=== PATIENT | female | born 1975 | race Caucasian/White ===

== ENCOUNTER 2019-10-23 11:55 | Outpatient (CLI) | payer OTHER, SELFPAY ==
--- NOTE | ~2019-10-23 | CT_ITS ---
EXAMINATION: CT abdomen pelvis w con DATE: 10/23/2019 12:22 INDICATION: Abdominal pain TECHNIQUE: Computed tomography (CT) of the abdomen and pelvis was performed with 100 cc Omnipaque 350 intravenous contrast. Automated exposure control and iterative reconstruction technique were employe d. Exam dose: 322.58 mGy-cm total exam DLP. COMPARISON: None. FINDINGS: The lung bases are clear. Normal heart size. No pericardial or pleural effusion. The liver, gallbladder, bile ducts, spleen, pancreas, pancreatic duct, and adrenal glands are unremar kable. There are multiple bilateral renal cysts, the largest measuring 1.5 cm on the left, 1.2 cm on the rig ht. An IUD is noted within the uterus. The urinary bladder is evacuated. Normal caliber of the abdominal aorta. No intraperitoneal or retroperitoneal or pelvic mass lesion or adenopathy or ascites. Diverticulosis of the colon; no CT evidence of diverticulitis. No bowel obstruction, bowel wall thick ening, pneumatosis or intraperitoneal free air. Included skeletal structures are unremarkable.. IMPRESSION: IUD within uterus Bilateral renal cysts Diverticulosis of the colon Reviewed, dictated and finalized at Location [facility]. Reviewed, dictated and finalized at location A.
[2019-10-23 12:52] LABS: Hematocrit 36.5 % (37.0-47.0); Hemoglobin 12.3 g/dL (12.0-15.0); Mean Corpuscular HGB Conc 33.7 g/dl (32-36); Mean Corpuscular Volume 91.9 fl (80-100); Mean Platelet Volume 9.6 fl (7.4-10.4); Platelet Count Result 246 k/mm3 (150-375); Red Blood Count 3.97 M/mm3 (4.2-5.4); Red Cell Distribution Width 11.9 % (11.5-14.5); White Blood Count 8.3 K/mm3 (4.5-10.0)
[2019-10-23 12:54] LABS: Anion Gap 7 mmol/L (8-16); Blood Urea Nitrogen 10 mg/dL (7-17); Calcium 8.8 mg/dL (8.4-10.2); Carbon Dioxide 27 mmol/L (22-30); Chloride 100 mmol/L (98-107); Estimated Glomerular Filt Rate > 60; Glucose 89 mg/dL (65-105); Potassium 4.4 mmol/L (3.4-5.0); Sodium 134 mmol/L (137-145)
== END 2019-10-23 11:56 | disposition home or self-care (01) ==
LOC: ANHIMG 12:01
PROVIDERS: PCP Family Medicine; Visit Provider Nurse Practitioner Family
DX: R10.9 Unspecified abdominal pain (principal); Z97.5 Presence of (intrauterine) contraceptive device; N28.1 Cyst of kidney, acquired; K57.90 Diverticulosis of intestine, part unspecified, without perforation or abscess without bleeding
CPT/HCPCS: 36415; 74177; 80048; 85027; Q9967

== ENCOUNTER 2020-03-02 13:53 | Outpatient (CLI) | payer OTHER, SELFPAY ==
[2020-03-02 14:36] LABS: Basophils Absolute Auto 0.1 K/mm3 (0.0-0.1); Basophils Percent Auto 0.6 % (0.2-1.2); Eosinophils Absolute Auto 0.1 K/mm3 (0-0.3); Eosinophils Percent Auto 1.1 % (0-4.4); Hematocrit 40.7 % (37.0-47.0); Hemoglobin 13.5 g/dL (12.0-15.0); Immature Granulocyte Absolute 0.03 K/mm3 (0.00-0.031); Immature Granulocyte Percent A 0.3 % (0-0.5); Lymphocytes Absolute Auto 2.93 K/mm3 (0.9-3.2); Lymphocytes Percent Auto 30.1 % (18.3-44.2); Mean Corpuscular HGB Conc 33.2 g/dl (32-36); Mean Corpuscular Hemoglobin 30.5 pg (26-34); Mean Corpuscular Volume 91.9 fl (80-100); Mean Platelet Volume 9.3 fl (7.4-10.4); Monocytes Absolute Auto 0.7 K/mm3 (0.1-0.6); Monocytes Percent Auto 6.8 % (2.6-8.5); Neutrophils Absolute Auto 5.9 K/mm3 (1.3-6.7); Neutrophils Percent Auto 61.1 % (45.5-73.1); Platelet Count Result 283 k/mm3 (150-375); Red Blood Count 4.43 M/mm3 (4.2-5.4); Red Cell Distribution Width 12.5 % (11.5-14.5); White Blood Count 9.7 K/mm3 (4.5-10.0)
[2020-03-02 14:48] LABS: Anion Gap 6 mmol/L (8-16); Blood Urea Nitrogen 11 mg/dL (7-17); Calcium 9.2 mg/dL (8.4-10.2); Carbon Dioxide 28 mmol/L (22-30); Chloride 104 mmol/L (98-107); Estimated Glomerular Filt Rate > 60; Glucose 89 mg/dL (65-105); Potassium 4.1 mmol/L (3.4-5.0); Sodium 138 mmol/L (137-145)
[2020-03-02 15:18] LABS: Thyroid Stimulating Hormone 0.697 uIU/mL (0.465-4.680)
--- NOTE | 2020-03-05 08:03 | WPDHOLTEREM ---
Holter/Event Monitor Holter/Event Monitor Date of procedure: 03/02/20 Procedure Type: 24 hour holter monitor Indications: Syncope Conclusion: 1. 24 hour holter monitor on 03/02/20. 2. Underlying rhythm is sinus rhythm. HR range 47-124 bpm; average HR 71 bpm. 3. There are 17 premature supraventricular complexes and 2 supraventricular couplets. No supraventricular tachycardia. 4. There are 14 premature ventricular complexes. No ventricular tachycardia. 5. No sinoatrial or atrioventricular blocks. No significant pauses greater than 2 seconds. 6. Patient reports dizziness which demonstrate Sinus rhythm, HR range 64-70 bpm.
== END 2020-03-02 13:54 | disposition home or self-care (01) ==
PROVIDERS: PCP Family Medicine; Visit Provider Family Medicine
DX: R55 Syncope and collapse (principal)
CPT/HCPCS: 36415; 80048; 84443; 85025; 93225; 93226

== ENCOUNTER 2020-03-24 14:39 | Outpatient (CLI) | payer OTHER, SELFPAY ==
--- NOTE | 2020-03-24 14:51 | ECHO_ITS ---
Patient Info Name: Jannet Farfan Age: 44 years : 1975 Gender: Female Ht: 66 in Wt: 147 lbs BSA: 1.77 m2 HR: 62 bpm BP: 121 / 83 mmHg Heart Rhythm: Sinus Rhythm Technical Quality: Good Exam Date: 03/24/2020 3:11 PM Exam Location: [facility] Patient Status: Outpatient Admit Date: 03/24/2020 Staff Ordering Physician: Griffin Chaudhari MD Stereoptician: Shanda Yan RDCS Attending Provider: Griffin Chaudhari MD Referring Physician: Fara TALAVERA; Exam Type: CA echo doppler color flow Study Info Indications - syncope collaspe Complete two-dimensional, color flow and Doppler transthoracic echocardiogram is performed. Summary 1. Complete two-dimensional, color flow and Doppler transthoracic echocardiogram is performed. 2. No significant valvular heart disease. 3. The left ventricle is borderline enlarged with normal wall thickness. The left ventricular systolic function is at the lower end of normal, visually 55-60% ejection fraction, measured ejection fraction of 61%. There are no focal wall motion abnormalities. Normal diastolic function. 4. Left atrial chamber dimension is mildly enlarged. 5. No pulmonary hypertension, estimated pulmonary arterial systolic pressure is 26 mmHg. 6. Normal sinus rhythm. Left Ventricle Left ventricular chamber dimension is normal. Left ventricular systolic function is normal, estimated at 55-60%. There is no increased left ventricular wall thickness. Left ventricular septal wall motion is normal. The left ventricular diastolic function is normal. Right Ventricle Right ventricular chamber dimension is normal. Right ventricular systolic function is normal. Left Atria Left atrial chamber dimension is mildly enlarged. Right Atria Right atrial chamber dimension is normal. Aortic Valve The aortic valve is trileaflet. There is no aortic valve sclerosis. There is no aortic valve stenosis. There is no aortic valve regurgitation. Pulmonic Valve The pulmonic valve is normal. There is no pulmonic valve stenosis. There is trace pulmonic regurgitation. Mitral Valve The mitral valve has normal leaflets. There is no mitral valve stenosis. There is trace mitral valve regurgitation. Tricuspid Valve The tricuspid valve leaflets are normal. There is no significant tricuspid valve stenosis. There is trace tricuspid valve regurgitation. No pulmonary hypertension, estimated pulmonary arterial systolic pressure is 26 mmHg. Pericardium/Pleural The pericardium appears normal. There is no pericardial effusion. Inferior Vena Cava Normal inferior vena cava with >50% collapse upon inspiration consistent with Empty right atrial pressure, 10 mmHg. Aorta The aortic root size at the sinus of Valsalva is normal. The prox ascending aorta size is normal. Left Ventricular Outflow Tract Name Value Normal LVOT 2D LVOT Diameter 2.0 cm LVOT Doppler LVOT Peak Gradient 4 mmHg LVOT Mean Gradient 3 mmHg LVOT VTI 24 cm LVOT VTI/AV VTI Ratio
== END 2020-03-24 14:40 | disposition home or self-care (01) ==
PROVIDERS: PCP Family Medicine; Visit Provider Family Medicine
DX: R55 Syncope and collapse (principal)
CPT/HCPCS: 93306

== ENCOUNTER 2020-06-10 09:02 | Outpatient (CLI) | payer OTHER, SELFPAY ==
[2020-06-10 09:18] LABS: Basophils Absolute Auto 0.1 K/mm3 (0.0-0.1); Eosinophils Absolute Auto 0.1 K/mm3 (0-0.3); Eosinophils Percent Auto 1.8 % (0-4.4); Hematocrit 39.2 % (37.0-47.0); Immature Granulocyte Absolute 0.02 K/mm3 (0.00-0.031); Immature Granulocyte Percent A 0.3 % (0-0.5); Lymphocytes Absolute Auto 2.82 K/mm3 (0.9-3.2); Mean Corpuscular HGB Conc 33.2 g/dl (32-36); Mean Corpuscular Hemoglobin 30.5 pg (26-34); Mean Platelet Volume 8.8 fl (7.4-10.4); Monocytes Absolute Auto 0.5 K/mm3 (0.1-0.6); Monocytes Percent Auto 7.2 % (2.6-8.5); Neutrophils Absolute Auto 3.5 K/mm3 (1.3-6.7); Neutrophils Percent Auto 49.7 % (45.5-73.1); Platelet Count Result 257 k/mm3 (150-375); Red Blood Count 4.26 M/mm3 (4.2-5.4); Red Cell Distribution Width 12.1 % (11.5-14.5); White Blood Count 7.1 K/mm3 (4.5-10.0)
[2020-06-10 09:55] LABS: Erythrocyte Sedimentation Rate 15 mm/hr (0-20)
[2020-06-10 10:19] LABS: Free T4 Free Thyroxine 0.89 ng/mL (0.78-2.19)
[2020-06-10 11:45] LABS: CRP 0.5 mg/dL (<1.0)
[2020-06-10 11:51] LABS: Rheumatoid Factor < 8.6 IU/ML (<12)
[2020-06-10 12:19] LABS: Thyroid Stimulating Hormone 0.588 uIU/mL (0.465-4.680)
[2020-06-15 07:23] LABS: Triiodothyronine T3 Free 3.5 pg/mL (2.3-4.2)
== END 2020-06-10 09:03 | disposition home or self-care (01) ==
PROVIDERS: PCP Family Medicine; Visit Provider Nurse Practitioner Family
DX: H20.9 Unspecified iridocyclitis (principal)
CPT/HCPCS: 36415; 84439; 84443; 84481; 85025; 85652; 86038; 86039; 86140; 86430

== ENCOUNTER 2021-07-14 16:04 | Outpatient (CLI) | payer OTHER, SELFPAY ==
--- NOTE | ~2021-07-14 | XR_ITS ---
XR hand LT 2V DATE: 07/14/2021 16:17 INDICATION: Left hand injury, pain TECHNIQUE: AP and lateral views COMPARISON: None FINDINGS: No fracture or dislocation, periosteal reaction or bone destruction. Joint spaces are prese rved. No erosive change or chondrocalcinosis. IMPRESSION: Negative examination Reviewed, dictated and finalized at location A. IMPRESSION: Negative examination
== END 2021-07-14 16:05 | disposition home or self-care (01) ==
LOC: ANHIMG 16:07
PROVIDERS: PCP Family Medicine; Visit Provider Physician Assistant Medical
DX: S69.92XA Unspecified injury of left wrist, hand and finger(s), initial encounter (principal)
CPT/HCPCS: 73120

== ENCOUNTER 2021-07-21 09:26 | Outpatient (CLI) | payer OTHER, SELFPAY ==
[2021-07-21 09:49] LABS: Blood Urea Nitrogen 10 mg/dL (7-17)
[2021-07-21 10:39] LABS: Anion Gap 7 mmol/L (8-16); Carbon Dioxide 27 mmol/L (22-30); Chloride 105 mmol/L (98-107); Sodium 139 mmol/L (137-145)
[2021-07-21 10:40] LABS: Estimated Glomerular Filt Rate > 60; Glucose 97 mg/dL (65-110); Triglycerides 69 mg/dL (<150)
[2021-07-21 10:41] LABS: Cholesterol 170 mg/dL (0-200); HDL Direct 61 mg/dL
[2021-07-21 10:59] LABS: LDL Cholesterol Direct 79 mg/dL
[2021-07-21 11:02] LABS: Thyroid Stimulating Hormone 0.418 uIU/mL (0.465-4.680)
== END 2021-07-21 09:27 | disposition home or self-care (01) ==
PROVIDERS: PCP Family Medicine; Visit Provider Nurse Practitioner Family
DX: F41.9 Anxiety disorder, unspecified (principal); Z13.220 Encounter for screening for lipoid disorders; Z13.1 Encounter for screening for diabetes mellitus
CPT/HCPCS: 36415; 80048; 80061; 84443

== ENCOUNTER 2021-08-02 12:26 | Outpatient (CLI) | payer OTHER, SELFPAY ==
[2021-08-02 13:14] LABS: T4 Thyroxine 6.08 ug/dL (5.53-11.0)
[2021-08-02 13:27] LABS: Thyroid Stimulating Hormone 0.329 uIU/mL (0.465-4.680)
== END 2021-08-02 12:27 | disposition home or self-care (01) ==
PROVIDERS: PCP Family Medicine; Visit Provider Nurse Practitioner Family
DX: R79.89 Other specified abnormal findings of blood chemistry (principal)
CPT/HCPCS: 36415; 84436; 84443

== ENCOUNTER 2022-10-10 14:29 | Emergency (ER) | payer OTHER, SELFPAY ==
[2022-10-10] VITALS (21 sets, daily range): BP systolic 141–192; BP diastolic 88–123; PULSE 50–70; RESP 12–20; TEMP 36.8; O2SAT 98–100
--- NOTE | ~2022-10-10 | XR_ITS ---
EXAMINATION: XR chest 2V Exam Date/Time: 10/10/2022 15:06 CDT HISTORY: cp Comparison: CT abdomen pelvis 10/23/2019. RESULT: Lines, tubes, and devices: None. Lungs and pleura: Minimal left posterior costophrenic angle blunting, otherwise clear. Cardiomediastinal silhouette: Stable. Other: No acute osseous or upper abdominal finding. IMPRESSION: Minimal left posterior costophrenic angle blunting may represent a trace pleural effusion or chronic pleural parenchymal scarring. Reviewed, dictated and finalized at location K. IMPRESSION: Minimal left posterior costophrenic angle blunting may represent a trace pleura l effusion or chronic pleural parenchymal scarring.
--- NOTE | ~2022-10-10 | CT_ITS ---
EXAMINATION: CTA brain carotid DATE: 10/10/2022 19:53 INDICATION: dizziness, numbness that radiates to arms TECHNIQUE: Computed tomographic angiography (CTA) of the head was performed without and with 100 mL O mnipaque-350 intravenous contrast. CTA of the neck was performed with intravenous contrast. Automated exposure control and iterative reconstruction technique were employed. The dose-length product was 1 659.16 mGy-cm. Maximum intensity projection and volume rendered 3D-reconstructions were created by harriet harris technologist on a separate workstation. COMPARISON: None. FINDINGS: CT BRAIN: No acute large vessel infarct, intracranial hemorrhage, mass, or hydrocephalus. Aerated secretions in the sphenoid sinus. Left maxillary mucosal thickening. Air-fluid level in the right maxillary sinus. CTA HEAD: No large vessel occlusion, aneurysm, high flow vascular malformation, nidus or extravasation. Persist ent origin of the left posterior cerebral artery. Symmetric parenchymal enhancement. Patent cer ebral veins. CTA NECK: Aortic arch and proximal great vessels: No significant plaque. The left vertebral artery takes its or igin directly from the arch. Right common carotid, carotid bifurcation, and internal carotid artery: No plaque.There is 0% stenosi s of the proximal right internal carotid artery relative to normal distal artery lumen diameter (NASC ET criteria). Left common carotid, carotid bifurcation, and internal carotid artery: No plaque.There is 0% stenosis of the proximal left internal carotid artery relative to normal distal artery lumen diameter (NASCET criteria). Vertebral arteries: No significant plaque or stenosis. Right vertebral artery is dominant, Other findings: Subcentimeter thyroid hypodensities that require no additional evaluation. Visualized lung parenchyma is clear. IMPRESSION: No acute intracranial process. No acute large vessel occlusion. No significant carotid or vertebral stenosis. Paranasal sinus findings may reflect acute sinusitis in the appropriate clinical context. Reviewed, dictated and finalized at location K. IMPRESSION: No acute intracranial process. No acute large vessel occlusion. No significant carotid or vertebral stenosis. Paranasal sinus findings may reflect acute sinusitis in the appropriate clinica l context.
--- NOTE | 2022-10-10 14:37 | ECG_ITS ---
Measurements Intervals [place] Rate: 68 P: 51 MD: 141 QRS: 49 QRSD: 83 T: 45 QT: 405 QTc: 433 Interpretive Statements SINUS RHYTHM NONSPECIFIC T-WAVE ABNORMALITY ABNORMAL ECG NO PREVIOUS ECG AVAILABLE FOR COMPARISON Electronically Signed On 10-10-2022 15:21:05 CDT by Pato Carlton M.D.
[2022-10-10 15:04] LABS: Basophils Absolute Auto 0.1 K/mm3 (0.0-0.1); Basophils Percent Auto 0.6 % (0.2-1.2); Eosinophils Absolute Auto 0.2 K/mm3 (0-0.3); Eosinophils Percent Auto 1.6 % (0-4.4); Hematocrit 37.3 % (37.0-47.0); Hemoglobin 12.7 g/dL (12.0-15.0); Immature Granulocyte Absolute 0.03 K/mm3 (0.00-0.031); Immature Granulocyte Percent A 0.3 % (0-0.5); Lymphocytes Absolute Auto 2.61 K/mm3 (0.9-3.2); Mean Corpuscular Hemoglobin 30.7 pg (26-34); Mean Corpuscular Volume 90.1 fl (80-100); Mean Platelet Volume 9.2 fl (7.4-10.4); Monocytes Absolute Auto 0.6 K/mm3 (0.1-0.6); Monocytes Percent Auto 5.5 % (2.6-8.5); Platelet Count Result 281 k/mm3 (150-375); Red Blood Count 4.14 M/mm3 (4.2-5.4); Red Cell Distribution Width 11.9 % (11.5-14.5); White Blood Count 10.5 K/mm3 (4.5-10.0)
[2022-10-10 15:19] LABS: Alanine Aminotransferase 19 U/L (6-35); Albumin Level 4.7 g/dL (3.5-5.1); Alkaline Phosphatase 61 U/L (38-126); Anion Gap 10 mmol/L (8-16); Aspartate Amino Transferase 34 U/L (14-36); Bilirubin,Total 0.8 mg/dL (0.2-1.3); Blood Urea Nitrogen 12 mg/dL (7-17); Calcium 8.9 mg/dL (8.4-10.2); Carbon Dioxide 28 mmol/L (22-30); Chloride 100 mmol/L (98-107); Estimated CRCL calculation 85 ml/min; Estimated Glomerular Filt Rate > 60; Glucose 120 mg/dL (65-110); Lipase 123 U/L (23-300); Potassium 3.5 mmol/L (3.4-5.0); Sodium 138 mmol/L (137-145)
[2022-10-10 15:20] LABS: INR 1.1; Partial Thromboplastin Time 33.5 SECONDS (22.3-36.8); Prothrombin Time 14.5 Seconds (11.1-14.7)
[2022-10-10 15:31] LABS: Troponin I < 0.012 ng/mL (0.000-0.034)
[2022-10-10 19:33] LABS: Troponin I < 0.012 ng/mL (0.000-0.034)
--- NOTE | 2022-10-10 19:52 | ED.GENADULT ---
HPI - General Adult General Chief complaint: Dizziness Stated complaint: sent by PCP for HTN and dizziness Time Seen by Provider: 10/10/22 19:19 History of Present Illness HPI narrative: Patient 46-year-old female who presents the emergency department with chief complaint of dizziness. The patient reports that on Sunday she was driving from the report and had an episode where she felt as though she was very lightheaded and felt as though she could not really control her arms well patient had to tap puller and her had to take over driving the vehicle the patient states that she has still had intermittent episodes similar to this since that time the patient states that she normally does not have high blood pressure and occasionally checks her blood pressure at home but has never been elevated the patient states that when she saw her primary care provider and also checked her blood pressure today was running in the 160s patient reports no headache denies focal weakness in her arms or legs denies change in speech or changes in vision Related Data Allergies Allergy/AdvReac Type Severity Reaction Status Date / Time No Known Allergies Allergy Verified 10/10/22 14:29 Review of Systems Review of Systems: A 10 system review of systems was completed on the patient and is negative except for what is stated in the HPI. Nursing and ancillary documentation was reviewed. [facility] Past Medical History Medical History Pre-syncope Family History Family History Other Family history of premature coronary heart disease Social History Social History Smoking status: Former smoker Alcohol intake: current Exam Narrative: GENERAL: Well-appearing, well-nourished, and in no acute distress. HEAD: Normocephalic, atraumatic. EYES: PERRLA and EOMI. ENT: Nares clear, no rhinorrhea or epistaxis. Mucous membranes moist. NECK: Supple. CHEST: Clear to auscultation. No respiratory distress. HEART: Regular rate and rhythm. No murmur heard. Normal peripheral pulses. ABDOMEN: Soft, nontender, nondistended, normal active bowel sounds. EXTREMITIES: Normal range of motion. No edema. SKIN: Warm, dry, no rash. NEURO: No focal deficits. Alert and oriented x3. PSYCH: Normal mood and affect. Course Vital Signs Vital signs: Vital Signs Temperature 36.8 C 10/10/22 14:33 Pulse Rate 70 10/10/22 14:33 Respiratory Rate 16 10/10/22 14:33 Blood Pressure 189/100 H 10/10/22 14:33 Pulse Oximetry 98 10/10/22 14:33 Temperature 36.8 C 10/10/22 14:33 Pulse Rate 59 L 10/10/22 21:31 Respiratory Rate 16 10/10/22 21:31 Blood Pressure 147/92 H 10/10/22 21:30 Pulse Oximetry 99 10/10/22 21:31 Medical Decision Making MDM Narrative Medical decision making narrative: Differential diagnosis includes hypertensive urgency, CVA, GA, electrolyte abnormality, UTI Laboratory studies were obtained and the patient showed normal CBC normal CMP troponin was negative for 2 sets BNP was 114 lipase was 123 urinalysis showed 11-20 white blood cells 1+ bacteria 2+ leukocyte esterase Patient was given p.o. Keflex and also will be started on lisinopril The case was initially discussed with the hospitalist for possible admission since the patient's blood pressure has come down substantially and the patient is doing much better is felt the patient could be followed up as an outpatient The patient had a CT angiography of the head and neck which showed no acute abnormalities Vital Signs Vital Signs: Vital Signs Temperature 36.8 C 10/10/22 14:33 Pulse Rate 70 10/10/22 14:33 Respiratory Rate 16 10/10/22 14:33 Blood Pressure 189/100 H 10/10/22 14:33 Pulse Oximetry 98 10/10/22 14:33 Temperature 36.8 C 10/10/22 14:33 Pulse Rate
[2022-10-10] MEDS: SODIUM CHLORIDE 0.9% IV 1,000 ML 999 ML IV CONT (19:57)
[2022-10-10 20:22] LABS: Appearance Urine Cloudy (Clear); Bacteria Urine 1+ /hpf; Bilirubin Urine Negative (Negative); Blood Urine Negative (Negative); Color Urine Yellow (Yellow); Glucose Urine UA Negative (Negative); Ketones Urine Negative (Negative); Leukocyte Esterase Ur 2+ LEU/UL (Negative); Nitrate Urine Negative (Negative); Non Pathogenic Casts 0-2; Protein Urine Negative (Negative); RBC Urine 0-2 /hpf (0-2); Specific Grav Ur 1.021 (1.001-1.035); Squamous Epithelial Cell Urine Moderate /hpf (Few); Urobilinogen Urine 0.2 mg/dL (<2.0); pH Urine 7.5 (5.0-9.0)
[2022-10-10 20:23] LABS: Lactic Acid Reflex 1.1 mmol/L (0.7-2.0)
[2022-10-10 20:26] LABS: Add Urine Microscopic? YES
[2022-10-10 20:35] LABS: Magnesium 2.1 mg/dL (1.6-2.3)
[2022-10-10 20:45] LABS: NT Pro B Type Natriuretic Pept 114 pg/mL (19.9-100)
[2022-10-10] MEDS: hydrALAZINE HCL 20 MG/ML VIAL 10 MG IV PUSH (21:09)
== END 2022-10-10 22:11 | disposition home or self-care (01) ==
PROVIDERS: Student in an Organized Health Care Education/Training Program; Emergency Provider Emergency Medicine; PCP Family Medicine
DX: N39.0 Urinary tract infection, site not specified (principal); I10 Essential (primary) hypertension; R42 Dizziness and giddiness; Z87.891 Personal history of nicotine dependence; R94.31 Abnormal electrocardiogram [ECG] [EKG]
CPT/HCPCS: 36415; 70496; 70498; 71046; 80053; 81001; 81025; 83605; 83690; 83735; 83880; 84484; 85025; 85610; 85730; 87086; 87088; 93005; 96361; 96374; 99284; J0360; J7030; Q9967

== ENCOUNTER 2022-10-17 17:37 | Outpatient (CLI) | payer OTHER, SELFPAY ==
[2022-10-17 18:26] LABS: Basophils Absolute Auto 0.1 K/mm3 (0.0-0.1); Basophils Percent Auto 0.7 % (0.2-1.2); Eosinophils Absolute Auto 0.3 K/mm3 (0-0.3); Hemoglobin 12.7 g/dL (12.0-15.0); Immature Granulocyte Absolute 0.03 K/mm3 (0.00-0.031); Immature Granulocyte Percent A 0.3 % (0-0.5); Lymphocytes Absolute Auto 3.54 K/mm3 (0.9-3.2); Lymphocytes Percent Auto 36.8 % (18.3-44.2); Mean Corpuscular HGB Conc 32.6 g/dl (32-36); Mean Corpuscular Hemoglobin 30.2 pg (26-34); Mean Corpuscular Volume 92.9 fl (80-100); Mean Platelet Volume 9.5 fl (7.4-10.4); Monocytes Absolute Auto 0.7 K/mm3 (0.1-0.6); Monocytes Percent Auto 6.9 % (2.6-8.5); Neutrophils Percent Auto 52.3 % (45.5-73.1); Platelet Count Result 305 k/mm3 (150-375); Red Cell Distribution Width 12.1 % (11.5-14.5); White Blood Count 9.6 K/mm3 (4.5-10.0)
[2022-10-21 07:34] LABS: FSH 38.3 mIU/mL (***); LH 31.7 mIU/mL (***)
[2022-10-21 19:11] LABS: Testosterone Free 1.7 pg/mL (0.1-6.4); Testosterone Total 21 ng/dL (2-45)
[2022-10-28 16:22] LABS: Estrogen 243 pg/mL
== END 2022-10-17 17:38 | disposition home or self-care (01) ==
PROVIDERS: PCP Family Medicine; Visit Provider Family Medicine
DX: F41.0 Panic disorder [episodic paroxysmal anxiety] (principal); E34.9 Endocrine disorder, unspecified; D72.829 Elevated white blood cell count, unspecified
CPT/HCPCS: 36415; 82672; 83001; 83002; 84402; 84403; 85025

== ENCOUNTER → 2022-12-13 09:20 | Outpatient (CLI) | payer OTHER, SELFPAY ==
--- NOTE | ~2022-12-13 | XR_ITS ---
XR abdomen/kub 1V 12/13/2022 09:38 INDICATION: Abdomen pain TECHNIQUE: KUB COMPARISON: No prior studies for comparison. FINDINGS: Bowel gas pattern is normal. There is no evidence of free air, mass, organomegaly, ascites or obstruction. No abnormal calculi are seen. The bones appear intact. There is an IUD in the pelv is. Moderate colonic fecal loading. IMPRESSION: 1: No acute abdominal abnormality identified. Reviewed, dictated and finalized at location B.
== END ==
PROVIDERS: PCP Nurse Practitioner Family; Visit Provider Nurse Practitioner Family
DX: R10.9 Unspecified abdominal pain (principal); M54.50 Low back pain, unspecified
CPT/HCPCS: 74018

== ENCOUNTER 2022-12-22 07:55 | Outpatient (CLI) | payer OTHER, SELFPAY ==
--- NOTE | ~2022-12-22 | CT_ITS ---
EXAMINATION: CT abdomen pelvis wo/w con DATE: 12/22/2022 08:26 INDICATION: Cyst of the kidney, acquired TECHNIQUE: Computed tomography (CT) of the abdomen was performed without intravenous contrast. CT of the abdomen and pelvis was then performed with a total of 100 mL Omnipaque 350 intravenous contrast. The dose-length product (DLP) was 501.09 mGy-cm. Automated exposure control and iterative reconstruct ion technique were employed. COMPARISON: 10/23/2019 FINDINGS: The lung bases are clear. The heart size is normal. The liver, spleen, pancreas, gallbladde r, and adrenal glands are normal. There are multiple simple cysts of both kidneys which measure up to 1.5 cm on the left. There is a 10 mm proteinaceous cyst of the interpolar region of the right kidney . No suspicious renal or urothelial lesion identified. No pathologically enlarged abdominal or pelvic lymph nodes are identified. No free intraperitoneal gas or evidence of bowel obstruction. An IUD is present in expected position. Colonic diverticulosis is present without evidence of diverticulitis. T he appendix is normal. A moderate volume of colonic stool is present. IMPRESSION: 1. Cysts of the kidneys, including a proteinaceous cyst on the right. No suspicious renal lesion iden tified. Reviewed, dictated and finalized at location B. ING INSULATION BLOWER IMPRESSION: 1. Cysts of the kidneys, including a proteinaceous cyst on the right. No suspic ious renal lesion identified.
== END 2022-12-22 07:56 | disposition home or self-care (01) ==
PROVIDERS: PCP Nurse Practitioner Family; Visit Provider Nurse Practitioner Family
DX: N28.1 Cyst of kidney, acquired (principal)
CPT/HCPCS: 74178; Q9967

== ENCOUNTER 2023-02-15 05:55 | Day surgery (SDC) | payer OTHER, SELFPAY ==
[2023-01-29 13:34] VITALS: BMI 22.8
--- NOTE | 2023-02-14 09:01 | P.PNAN_ITS ---
Anes - Initial Pre Proc Eval Procedure: Operation Date: 02/15/23 07:30 Proposed Procedures p Screening Colonoscopy - Sami Beal MD Date/Time: 02/14/23 09:01 Surgeon: Sami Beal MD Pre Op Diagnosis: Neoplasm Screening Patient Data Age: 47 Gender: F Height: 1.7 m Weight: 66 kg Allergies Allergy/AdvReac Type Severity Reaction Status Date / Time influenza virus vacc Allergy Intermediate Unknown Verified 02/15/23 06:13 trivalent, spl Home Medications Medication Instructions Recorded Confirmed Type alprazolam 0.25 mg tablet 0.25 mg PO TID PRN anxiety #20 tabs 10/17/22 02/15/23 Rx escitalopram oxalate 10 mg tablet 10 mg PO DAILY #30 tabs 11/20/22 02/15/23 Rx (Lexapro) Patient hx anesthesia problems: none Family hx anesthesia problems: none Results Review: All pre-operative results and documents have been reviewed as part of the pre- operative evaluation. [facility] Past Medical History Medical History BMI 25.0-25.9,adult Hormone imbalance Leukocytosis Panic attack Pre-syncope Family History Family History Father No problems noted. Mother No problems noted. Sibling No problems noted. Other Family history of premature coronary heart disease Social History Social History Smoking status: Never smoker Second hand tobacco smoke exposure: No Alcohol intake: current Alcohol use details: occassional Substance use: never Substance use type: does not use Lack of Transportation: No Lack of Food: Never True Current Housing: I Have Housing Concerned About Future Housing: No Difficulty Paying Gas/Electric Bills: No Difficulty Paying for Meds: No Currently Unemployed: No Education: High School Diploma/GED Difficulty w/ Childcare or Family Care: No Living arrangements: with family Gender identity (if verbalized by the patient): Female Spiritual care concerns: No Anes - Eval Final PreProcedure Day of Procedure 02/14/23 09:01 Patient weight: normal Heart: regular rate and rhythm Lungs: clear to auscultation and normal air movement Airway: Mallampati scale class II Neurological: alert and oriented Last oral intake: >/= 8 hours ASA classification: II Emergent: no Anesthetic plan: proceed Anesthesia type and monitoring: general GIVS and standard monitoring Results Review: All pre-operative results and documents have been reviewed as part of the pre- operative evaluation. Informed Consent: The patient's anesthetic plan and its attendant risks and benefits were discussed with the patient/family/POA. Questions were solicited and answers provided to the satisfaction of the patient/family/POA.
[2023-02-15 06:16] VITALS: BP 128/96; PULSE 73; RESP 14; TEMP 36.8; O2SAT 97
[2023-02-15] MEDS: LACTATED RINGERS 1,000 ML 150 ML IV CONT (06:31)
--- NOTE | 2023-02-15 07:06 | PM.HPGS ---
History of Present Illness History of Present Illness Consent: Risks, benefits, and alternatives have been discussed and questions answered. Patient agrees to proceed with procedure. Chief complaint: Neoplasm Screening Narrative: Jannet Farfan is a 47 year old female presents for screening colonoscopy. Patient has current weight appetite bowel movements are normal. She denies any blood in her stools. Her family history is noncontributory. Review of Systems Review of Systems: All systems reviewed & are unremarkable except as noted in HPI and below PMFSH Past Medical History Medical History BMI 25.0-25.9,adult Hormone imbalance Leukocytosis Panic attack Pre-syncope Family History Family History Father No problems noted. Mother No problems noted. Sibling No problems noted. Other Family history of premature coronary heart disease Social History Social History Smoking status: Never smoker Second hand tobacco smoke exposure: No Alcohol intake: current Alcohol use details: occassional Substance use: never Substance use type: does not use Lack of Transportation: No Lack of Food: Never True Current Housing: I Have Housing Concerned About Future Housing: No Difficulty Paying Gas/Electric Bills: No Difficulty Paying for Meds: No Currently Unemployed: No Education: High School Diploma/GED Difficulty w/ Childcare or Family Care: No Living arrangements: with family Gender identity (if verbalized by the patient): Female Spiritual care concerns: No Meds Home Medications and Allergies Home Medications Medication Instructions Recorded Confirmed Type alprazolam 0.25 mg tablet 0.25 mg PO TID PRN anxiety #20 tabs 10/17/22 02/15/23 Rx escitalopram oxalate 10 mg tablet 10 mg PO DAILY #30 tabs 11/20/22 02/15/23 Rx (Lexapro) Allergies Allergy/AdvReac Type Severity Reaction Status Date / Time influenza virus vacc Allergy Intermediate Unknown Verified 02/15/23 06:13 trivalent, spl Vital Signs Vital Signs - 24 hr 02/15/23 06:16 Temperature 98.2 F Pulse Rate 73 Respiratory Rate 14 Blood Pressure 128/96 H Pulse Oximetry 97 Oxygen Delivery Room Air Exam Narrative: Physical exam reveals patient to be alert. Vital signs stable. HEENT exam is unremarkable. Patient is anicteric. Lungs are clear to auscultation and percussion. Is without murmur or extra sounds. Abdomen bowel sounds are present soft nontender with no organomegaly. Digital external rectal exam is normal. Assessment and Plan Assessment and plan (1) Screening for colon cancer: Code(s): Z12.11 - Encounter for screening for malignant neoplasm of colon Status: Acute Assessment and Plan: Patient presents today for screening colonoscopy. She appears to be at average risk for colon polyps.
[2023-02-15 07:39] VITALS: BP 108/75; PULSE 76; RESP 16; O2SAT 98
[2023-02-15 07:49] VITALS: BP 114/81; PULSE 73; RESP 18; O2SAT 100
[2023-02-15 07:59] VITALS: BP 130/86; PULSE 65; RESP 18; O2SAT 100
--- NOTE | 2023-02-15 11:38 | WPDANESPN ---
Anes - Prog Note Post-Op Date/Time: 02/15/23 11:38 Cardiovascular status: normal Respiratory status: normal Airway patency: baseline Mental status: baseline Post-Op hydration status: normal Vital Signs: Last Vital Signs Temp 36.8 C 02/15/23 06:16 Pulse 65 02/15/23 07:59 Resp 18 02/15/23 07:59 BP 130/86 02/15/23 07:59 Pulse Ox 100 02/15/23 07:59 O2 Del Method Room Air 02/15/23 07:59 Pain Score (VAS): 0 I/O: Intake & Output 02/14/23 02/15/23 02/15/23 23:59 07:59 15:59 Intake Total 900 Balance 900 Post-procedural complaints: none Patient Feedback: Patient satisfied with anesthetic care. Other Findings: Patient vital signs back to baseline. Patient denies nausea and vomiting. Patient's pain under control. Patient OK for discharge.
== END 2023-02-15 08:12 | disposition home or self-care (01) ==
PROVIDERS: PCP Family Medicine; Visit Provider Internal Medicine Gastroenterology
PROC: 0DJD8ZZ Inspection of Lower Intestinal Tract, Via Natural or Artificial Opening Endoscopic (ICD-10-PCS; CPT 45378; principal; 2023-02-15 07:30)
DX: Z12.11 Encounter for screening for malignant neoplasm of colon (principal); K57.30 Diverticulosis of large intestine without perforation or abscess without bleeding; K64.8 Other hemorrhoids
CPT/HCPCS: 45378

== ENCOUNTER 2024-07-23 07:13 | Outpatient (CLI) | payer OTHER, SELFPAY ==
--- OUTSIDE RECORDS SUMMARY | 2024-07-23 07:16 | XMS_ITS | Clinical Summary ---
Author Organization [facility] Address [address] [place] [address] Care Team Providers Care Authors Motivational Name Role Phone Unavailable Primary Care Provider Unavailabl e Source Comments [facility],non-owned Affiliates and Associated Physician Practices is amultiple site organization consisting of ambulatory clinics and hospital sitesin [place], [place], [place] and [place]. This disclosure is being madepursuant to the Care Everywhere program and may not contain all information available regarding this patient. Last updated 17.[facility] Allergies No known active allergies Medications * Be aware that medications may not be up to date on this document. Alwaysverify current medications with the patient. Loratadine (CLARITIN PO) Active methylPREDNISolo ne (MEDROL DOSEPAK) 4 MG tabletIndication s:Acute bronchitis, unspecified organism Take by mouth as directed 1 Each 8 Active albuterol HFA (PROVENTIL;CRUZ GARY;PROAIR) 108 (90 BASE) MCG/ACT inhalerIndicatio ns:Acute bronchitis, unspecified organism Inhale 2 puffs by mouth every 4 hours as needed for Cough 1 Inhaler 8 Active benzonatate (TESSALON) 100 MG capsuleIndicatio ns:Cough Take 1 capsule by mouth 3 times daily as needed for Cough Reasons: Cough 30 capsule 8 Active Family History Medical History Relation Name Comments CAD (Coronary Artery Disease) Maternal Aunt CAD (Coronary Artery Disease) Mother Relation Name Status Comments Maternal Aunt Mother Social History Tobacco Use Types Packs/Day Years Used Date Smoking Tobacco: Former Smokeless Tobacco: Never Comments No Sex and Gender Information Value Date Recorded Sex Assigned at Not on file Legal Sex Female 8:25 PM CDT Gender Identity Not on file Sexual Orientation Not on file Last Filed Vital Signs Vital Sign Reading Time Taken Comments Blood Pressure 124/80 10/01/2017 4:54 PM CDT Pulse 73 10/01/2017 4:54 PM CDT Temperature 36.9 C (98.5 F) 10/01/2017 4:54 PM CDT Respiratory Rate 16 10/01/2017 4:54 PM CDT Oxygen Saturation 98% 10/01/2017 4:54 PM CDT Inhaled Oxygen Concentration - - Weight 63.5 kg (140 lb) 10/01/2017 4:54 PM CDT Height 167.6 cm (5' 6) 10/01/2017 4:54 PM CDT Body Mass Index 22.6 10/01/2017 4:54 PM CDT Plan of Treatment Health Maintenance Due Date Last Done Comments COLOGUARD (AGES 45-75) - COL ON CA SCREENING 1975 COLON MONITORING 1975 COLONOSCOPY - COLON CA SCREENING 1974 CT COLONOGRAPHY - COLON CA SCREENING 1975 Colorectal Cancer Screening 1975 FIT - COLON CA SCREENING 1974 FLEX SIG - COLON CA SCREENING 1975 LIPID TESTING 1975 MAMMOGRAM 1974 HIV SCREENING 1989 HEPATITIS C SCREENING 11/16/1992 DTAP/TDAP/TD VACCINES (1 - Tdap) 1993 HEPATITIS B VACCINE (1 of 3 - 19+ 3-dose series) 1993 COVID-19 VACCINE (1 - 2023-2 5 season) 2023 DEPRESSION SCREENING 02/13/2024 INFLUENZA VACCINE (Season Ended) 2024 ZOSTER VACCINE (1 of 2) 2024 HIB VACCINE Aged Out No longer eligi ble based on patient's age to complete this topic HPV VACCINE Aged Out No longer eligi ble based on patient's age to complete this topic MENINGOCOCCAL (Group B) VACC INE SHARED DECISION-MAKING Aged Out No longer eligibl e based on patient's age to complete this topic MENINGOCOCCAL GROUPS A/C/Y/W VACCINE Aged Out No longer eligible b ased on patient's age to complete this topic Insurance [facility]
--- OUTSIDE RECORDS SUMMARY | 2024-07-23 07:16 | XMS_ITS | Data Portability ---
Author Organization [place] - [facility], [employer] Address [address], [address] [place] [address] Care Team Providers Care Manager Advertising Name Role Phone HAMILTON MALHOTRA Primary Care Provider [phone] Assessment Encounter Date Assessment Date Assessment LastModified by Organization Details LastModified Time 04/27/2015 04/27/2015 Tx focused on deeper pressure with DTM and myofascial release to help release the lypoma. Patient had increased discomfort which is normal for this tx. She is instructed to continue icing and using her anti-inflammato ry if she has increased tenderness. [email or web address] Not available 04/27/2015 09:11:50 04/29/2015 04/29/2015 Patient still experiences increased discomfort with DTM at the lypoma area. It has been 2 weeks of trying to release the cyst, however there has been no luck. She was made an appointment with Dr. Malhotra for a knee injection to relieve the remaining pain she is experiencing. She is instructed to continue stretches and exercises at home however, since it has helped her pain. [email or web address] Not available 04/29/2015 09:29:02 12/13/2016 12/13/2016 Discussed positive strep test and prescribed amoxicillin. Recommended warm salt water gargles, Chloraseptic spray and Cepacol throat lozenges to help soothe her sore throat. Advised her to take Tylenol or Motrin for fever. Advised patient follow up if her symptoms persist or worsen. [email or web address] Not available 12/13/2016 15:29:21 Plan of Treatment Reminders Order Date Submit Date Provider Last Modified By Organization Details Last Modified Time Details Appointments None recorded . Lab rapid flu (A+B) 2016 017 In-Office Order, Internal Use Only DO Not Attach Compendium DO Not Attach Compendium, Do Not Delete/merge, [id number] 7 15:03:15 rapid strep group A, throat 2016 017 In-Office Order, Internal Use Only DO Not Attach Compendium DO Not Attach Compendium, Do Not Delete/merge, [id number] 7 15:03:15 rapid flu (A+B) 2015 016 [email or web address] In-Office Order, Internal Use Only DO Not Attach Compendium DO Not Attach Compendium, Do Not Delete/merge, [id number] 6 15:56:25 Referral None recorded . Procedures None recorded . Surgeries None recorded . Imaging XR, chest 2016 017 [email or web address] In-Office Order, Internal Use Only DO Not Attach Compendium DO Not Attach Compendium, Do Not Delete/merge, [id number] 7 19:40:12 Medication Orders amoxicil tammy 500 mg capsule 2016 017 INTERFACE [id number], [address] [place], [address], 7 15:26:10 Zithroma x Z-Parvez 250 mg tablet 2016 017 [email or web address] [id number], [address] [place], [address], 7 14:31:26 Tessalon Perles 100 mg capsule 2016 017 [id number], [address] [place], [address], 7 14:48:16 albutero l sulfate HFA 90 mcg/actu ation aerosol inhaler 2016 017 [email or web address] [id number], [address] [place], [address], 7 14:48:12 Patient Targets Encounter Date Encounter Id Patient Goals Patient Target Last Modified By Organization Details Last Modified Time Continue with previous goals. [email or web address] Not available 04/27/2015 09:11:50 Decrease remaining pain [email or web address] Not available 04/29/2015 09:29:02 Patient Instructions Encounter Date Encounter Id Patient Instructions Last Modified By Organization Details Last Modified Time 04/27/2015 [id number] Continue with stretches and exercises at home. [email or web address] Not available 04/27/2015 09:11:50 04/29/2015 [id number] Continue stretches and exercises at home. Follow up with Dr. Malhotra for a knee injection to help with your remaining pain. Please let us know if there is anything else we can do for you. [email or web address] Not available 04/29/2015 09:29:02 06/08/2015 [id number] You should rest, hydrate well and continue tylenol and motrin for the fevers. If you are still running a fever in 48 hours or if you develop any new symptoms please follow up. [email or web address] Not available 06/08/2015 15:56:25 05/17/2016 [id number] Please take medication as prescribed, rest, hydrate and use Mucinex as well. If your symptoms persist/worsen, please follow-up. [email or web address] Not available 05/17/2016 15:48:24 12/13/2016 [id number] Please take the medication as prescribed. Warm salt water gargles, Chloraseptic spray, and Cepacol throat lozenges may help soothe your sore throat. Rest and drink plenty of fluids. Please follow up if your symptoms persist, worsen, or you develop a fever of 100.5 degrees Fahrenheit or greater for at least 48 hours. [email or web address] Not available 12/13/2016 15:29:48 Reason for Referral None Reported. Results Created Date Observation Date Name Description Value Unit Range Abnormal Flag Note LastModifiedBy Organization Detail LastModifiedTime 12/14/19 17 12/13/2016 rapid strep group A, throa t Strep positi ve Not Available In-Office Order Internal Use Only DO Not Attach Compendium DO Not Attach Compendium, Do Not Delete/merge, [id number] 12/13/2016 15:00:59 12/14/19 17 12/13/2016 rapid flu (A+B) Flu A negati ve Not Available In-Office Order Internal Use Only DO Not Attach Compendium DO Not Attach Compendium, Do Not Delete/merge, [id number] 12/13/2016 14:51:04 12/14/19 17 12/13/2016 rapid flu (A+B) Flu B negati ve Not Available In-Office Order Internal Use Only DO Not Attach Compendium DO Not Attach Compendium, Do Not Delete/merge, [id number] 12/13/2016 14:51:04 05/18/19 17 05/17/2016 XR, chest Result normal Not Available In-Office Order Internal Use Only DO Not Attach Compendium DO Not Attach Compendium, Do Not Delete/merge, [id number] 05/17/2016 15:27:54 06/08/19 16 06/08/2015 rapid flu (A+B) Flu A negati ve Not Available In-Office Order Internal Use Only DO Not Attach Compendium DO Not Attach Compendium, Do Not Delete/merge, [id number] 06/08/2015 15:06:27 06/08/19 16 06/08/2015 rapid flu (A+B) Flu B negati ve Not Available In-Office Order Internal Use Only DO Not Attach Compendium DO Not Attach Compendium, Do Not Delete/merge, [id number] 06/08/2015 15:06:27 Result Notes None recorded. Problems Name Problem SNOMED Code Status Onset Date Resolution Date Notes Provider Name and Address Organization Details Recorded Time Knee pain Active Viviana campos [facility] 04/29/2015 09:29:02 Fever [id number] Active Simba campos [facility] 06/08/2015 15:56:25 Problem Notes None recorded. Procedures Surgical History Date Name Laterality Status Provider Name and Address Organization Details Recorded Time 04/29/19 16 17618: E-Stim - Unattended completed Viviana Bennett [facility] 04/29/2015 09:24:23 04/29/19 16 11345: Ultrasound (1:1) completed Vivianamary Bennett [facility] 04/29/2015 09:24:23 04/29/19 16 15466: Manual Therapy completed Vivianamary Bennett [facility] 04/29/2015 09:24:23 04/29/19 16 Moist Heat completed Viviana Costante [facility] 04/29/2015 09:24:23 04/27/19 16 94374: E-Stim - Unattended completed Viviana Costante [facility] 04/27/2015 09:03:52 04/27/19 16 80876: Ultrasound (1:1) completed Viviana Costante [facility] 04/27/2015 09:03:52 04/27/19 16 52678: Manual Therapy completed Viviana Costante [facility] 04/27/2015 09:03:52 04/27/19 16 Moist Heat completed Viivana Costante [facility] 04/27/2015 09:03:52 04/22/19 16 71445: E-Stim - Unattended completed Viviana Costante [facility] 04/22/2015 08:21:04 04/22/19 16 08031: Ultrasound (1:1) completed Viviana Costante [facility] 04/22/2015 08:21:04 04/22/19 16 55756: Manual Therapy completed Viviana Costante [facility] 04/22/2015 08:21:04 04/22/19 16 Moist Heat completed Viviana Costante [facility] 04/22/2015 08:21:04 04/20/19 16 36229: E-Stim - Unattended completed Viviana Costante [facility] 04/20/2015 09:02:18 04/20/19 16 62049: Ultrasound (1:1) completed Viviana Costante [facility] 04/20/2015 09:02:18 04/20/19 16 46847: Manual Therapy completed Viviana Costante [facility] 04/20/2015 09:02:18 04/20/19 16 Moist Heat completed Viviana Costante [facility] 04/20/2015 09:02:18 04/15/19 16 98417: E-Stim - Unattended completed [facility] 04/15/2015 08:41:30 04/15/19 16 73112: Ultrasound (1:1) completed [facility] 04/15/2015 08:41:30 04/15/19 16 93464: Manual Therapy completed [facility] 04/15/2015 08:41:30 04/15/19 16 Cryotherapy - PT completed [facility] 04/15/2015 08:41:33 04/13/19 16 89924: E-Stim - Unattended completed [facility] 04/13/2015 08:12:56 04/13/19 16 51877: Ultrasound (1:1) completed [facility] 04/13/2015 08:12:56 04/13/19 16 31070: Manual Therapy completed [facility] 04/13/2015 08:12:56 04/13/19 16 Moist Heat completed [facility] 04/13/2015 08:12:56 04/08/19 16 13766: E-Stim - Unattended completed [facility] 04/08/2015 09:26:14 04/08/19 16 88120: Ultrasound (1:1) completed [facility] 04/08/2015 09:26:14 04/08/19 16 96013: Manual Therapy completed [facility] 04/08/2015 09:26:14 04/08/19 16 Moist Heat completed [facility] 04/08/2015 09:26:14 04/05/19 16 39331: E-Stim - Unattended completed [facility] 04/05/2015 08:56:00 04/05/19 16 30573: Manual Therapy completed [facility] 04/05/2015 08:56:00 04/05/19 16 Moist Heat completed [facility] 04/05/2015 08:56:00 04/05/19 16 21284: Iontophoresis completed [facility] 04/05/2015 08:56:00 04/02/19 16 30569: E-Stim - Unattended completed [facility] 04/02/2015 09:47:57 04/02/19 16 09149: Ultrasound (1:1) completed [facility] 04/02/2015 09:47:57 04/02/19 16 86936: Manual Therapy completed [facility] 04/02/2015 09:47:57 04/02/19 16 Therapeutic exercices completed [facility] 04/02/2015 09:47:57 04/02/19 16 Moist Heat completed [facility] 04/02/2015 09:47:57 03/29/19 16 18551: E-Stim - Unattended completed [facility] 03/29/2015 08:43:29 03/29/19 16 04682: Ultrasound (1:1) completed [facility] 03/29/2015 08:43:29 03/29/19 16 29035: Manual Therapy completed [facility] 03/29/2015 08:43:29 03/29/19 16 Therapeutic exercices completed [facility] 03/29/2015 08:43:29 03/29/19 16 Moist Heat completed [facility] 03/29/2015 08:43:29 03/26/19 16 08624: E-Stim - Unattended completed [facility] 03/26/2015 11:12:36 03/26/19 16 77979: Ultrasound (1:1) completed [facility] 03/26/2015 11:12:36 03/26/19 16 88150: Manual Therapy completed [facility] 03/26/2015 11:12:36 03/26/19 16 Therapeutic exercices completed [facility] 03/26/2015 11:12:36 03/26/19 16 Moist Heat completed [facility] 03/26/2015 11:12:36 03/23/19 16 14852: E-Stim - Unattended completed [facility] 03/23/2015 09:53:15 03/23/19 16 16767: Ultrasound (1:1) completed [facility] 03/23/2015 09:53:15 03/23/19 16 47273: Manual Therapy completed [facility] 03/23/2015 09:53:15 03/23/19 16 Therapeutic exercices completed [facility] 03/23/2015 10:03:27 03/23/19 16 Moist Heat completed [facility] 03/23/2015 09:53:15 03/19/19 16 95160: E-Stim - Unattended completed [facility] 03/19/2015 09:44:32 03/19/19 16 34702: Ultrasound (1:1) completed [facility] 03/19/2015 09:44:32 03/19/19 16 49464: Manual Therapy completed [facility] 03/19/2015 09:44:32 03/19/19 16 Therapeutic exercices completed [facility] 03/19/2015 09:44:32 03/19/19 16 Moist Heat completed [facility] 03/19/2015 09:44:32 03/11/19 16 54152: E-Stim - Unattended completed [facility] 03/11/2015 09:16:58 03/11/19 16 35906: Ultrasound (1:1) completed [facility] 03/11/2015 09:16:58 03/11/19 16 18946: Manual Therapy completed [facility] 03/11/2015 09:16:58 03/11/19 16 Therapeutic exercices completed [facility] 03/11/2015 09:16:58 03/11/19 16 Moist Heat completed [facility] 03/11/2015 09:16:58 03/08/19 16 45459: E-Stim - Unattended completed [facility] 03/08/2015 10:12:49 03/08/19 16 92018: Ultrasound (1:1) completed [facility] 03/08/2015 10:12:49 03/08/19 16 43920: Manual Therapy completed [facility] 03/08/2015 10:12:49 03/08/19 16 Therapeutic exercices completed [facility] 03/08/2015 10:12:49 03/08/19 16 Moist Heat completed [facility] 03/08/2015 10:12:49 Imaging Results None recorded. Procedure Notes None recorded. Medical Equipment None Reported. Allergies No known drug allergies Medications Name Sig Start Date Stop Date Status Note LastModified by Organization Details LastModified Time amoxicillin 500 mg capsule Take 1 capsule every 12 hours by oral route for 10 days. 2016 active Not Available Not Available Not Avai lable Zithromax Z-Parvez 250 mg tablet Take 2 tablets every day by oral route for 1 day. 12/13 completed Not Available Not Available Not Available Tamiflu 75 mg capsule Take 1 capsule every day by oral route for 10 days. 2017 active Not Available Not Available Not Avai sundeep Douglas Perles 100 mg capsule Take 1 capsule 3 times a day by oral route. 12/13 completed Not Available Not Available Not Available diclofenac sodium 50 mg tablet,zayra yed release Take 1 tablet twice a day by oral route as needed. 05/17 completed Not Available Not Available Not Available methylpredn isolone 4 mg tablets in a dose pack Take as directed 05/17 completed Not Available Not Available Not Available albuterol sulfate HFA 90 mcg/actuati on aerosol inhaler Inhale 2 puffs every 4 hours by inhalatio n route as needed. 12/13 completed Not Available Not Available Not Available Vitals Date Recorded Body height Body weight Body mass index (BMI) Body temperature Heart rate Systolic blood pressure Diastolic blood pressure Provider Name and Address Organization Details Last Updated DateTime 7 167.64 cm 02242.3 g 23.2 kg/m2 97.1 [degF] 67 /min 134 mm[Hg] 88 mm[Hg] mayank veliz [facility] 7 14:46:15 Date Recorded Heart rate Body height Body temperature Body mass index (BMI) Body weight Systolic blood pressure Diastolic blood pressure Provider Name and Address Organization Details Last Updated DateTime 6 97 /min 167.64 cm 101.2 [degF] 22 kg/m2 11808.5 6232 g 159 mm[Hg] 104 mm[Hg] French jin [facility] 6 14:57:31 Date Recorded Body height Body mass index (BMI) Body weight Body temperature Heart rate Systolic blood pressure Diastolic blood pressure Provider Name and Address Organization Details Last Updated DateTime 7 167.64 cm 22.8 kg/m2 30475.5 2 g 103.3 [degF] 111 /min 143 mm[Hg] 100 mm[Hg] Sharad harris [facility] 7 14:35:12 Social History Question Answer Notes LastModified by Organizat ion Details LastModified Time Tobacco Smoking Status Former Smoker Viviana Bennett beth [facility] 02/01/2015 16:34:38 What Is Your Level Of Caffeine Consumption? Moderate Information not available 05/17/2016 What Type Of Diet Are You Following? REGULAR Information not available 05/17/2016 What Was The Date Of Your Most Recent Tobacco Screening? 12/13/2016 Information not available 09/06/2018 How Much Tobacco Do You Smoke? 0.25 PPD Information not available 05/17/2016 How Many Years Have You Smoked Tobacco? 10 Information not available 05/17/2016 Sex: Unknown Functional Status Question Answer Note LastModified by [employer] Details LastModified Time What is your level of alcohol consumption? Occasional Information not available 05/17/2016 What is your exercise level? Moderate Information not available 05/17/2016 Mental Status None recorded. Family History Relationship Description Onset Age of this Age Resolved Age Notes LastModified by Organization Details LastModified Time Mother Heart disease [email or web address] Not available 2015 14:57:59 Father No current problems or disability Not available 06/07 14:57:59 Medical History Condition Response Coronary Artery Disease N Other N Gout N Blood Diseases N Kidney Stones N Hyperthyroidism N Lung Disease N Depression N COPD N Hypothyroidism N Anxiety Disorder N Muscle, Joint, or Bone Problems N Obesity N Vision or Eye Problems N Arthritis N Head Injury/Concussion N Cancer N Stroke N ADHD N High Cholesterol N Liver Disease N Fibromyalgia N Headaches N Kidney Disease N Heart Problems N Ear or Hearing Problems N GI Problems N Skin Problems N Anemia N Psychiatric Disorder N Mental Illness N Diabetes N Seizures/Epilepsy N Eczema N Diverticulitis N Asthma N Allergies N Reflux/GERD N Hepatitis N Pulmonary Embolism N Hypertension N Osteoporosis N Gynecological HistoryNo gynecological history recorded. Obstetrics History GPAL:G 0 P 0 0 0 0 Immunizations Vaccine Type Date Status Note Provider Nam e and Address Organization Details Recorded Time Tdap 09/14/2011 completed ANDREA Morales [facility] 12/13/2016 14:31:43 Past Encounters Encounter ID Performer Location Encounter Start Date Encounter Closed Date Diagnosis/Indication Diagnosis SNOMED-CT Code Diagnosis ICD10 Code Diagnosis Note [id number] ALEXIS Das [facility] [address] [place] [address] 02/01/2015 16:17:30 02/01/2015 16:46:09 Knee pain 19189192 M25.562 [id number] ALEXIS Das [facility] [address], [address] [place] [address] 03/05/2015 08:29:59 03/05/2015 09:10:10 Knee pain [id number] M25.562 [id number] Hamilton Malhotra MD [facility] [address], [address] [place] [address] 03/08/2015 08:55:30 03/09/2015 09:21:13 Knee pain [id number] M25.561 [id number] Hamilton Malhotra MD [facility] [address] [place] [address] 03/11/2015 07:52:54 03/11/2015 14:20:07 Knee pain [id number] M25.561 [id number] Hamilton Malhotra MD [facility] [address], [address] [place] [address] 03/19/2015 07:23:12 03/22/2015 08:47:26 Knee pain [id number] M25.561 [id number] Hamilton Malhotra MD [facility] [address], [address] [place] [address] 03/23/2015 07:27:23 03/23/2015 08:53:53 Knee pain [id number] M25.561 [id number] Hamiltno Malhotra MD [facility] [address], [address] [place] [address] 03/26/2015 07:28:09 03/26/2015 08:26:46 Knee pain [id number] M25.561 [id number] Hamilton Malhotra MD [facility] [address], [address] [place] [address] 03/29/2015 07:58:50 03/29/2015 14:46:26 Knee pain [id number] M25.561 [id number] Hamilton Malhotra MD [facility] [address], [address] [place] [address] 04/02/2015 07:58:37 04/02/2015 08:46:06 Knee pain [id number] M25.561 [id number] Hamilton Malhotra MD [facility] [address], [address] [place] [address] 04/05/2015 08:01:39 04/05/2015 08:44:12 Knee pain [id number] M25.561 [id number] Hamilton Malhotra MD [facility] [address] [address], [address] [place] [address] 04/08/2015 07:59:44 04/12/2015 10:38:51 Knee pain [id number] M25.561 [id number] Hamilton Malhotra MD [facility] [address], [address] [place] [address] 04/12/2015 08:25:29 04/12/2015 09:12:12 Knee pain [id number] M25.562 [id number] Hamilton Malohtra MD [facility] [address], [address] [place] [address] 04/13/2015 07:27:32 04/13/2015 09:37:42 Knee pain [id number] M25.562 [id number] Hamilton Malhotra MD [facility] [address], [address] [place] [address] 04/15/2015 07:28:18 04/15/2015 12:21:50 Knee pain [id number] M25.562 [id number] Hamilton Malhotra MD [facility] [address] [address], [address] [place] [address] 04/20/2015 07:29:55 04/20/2015 09:12:31 Knee pain [id number] M25.562 [id number] Hamilton Malhotra MD [facility] [address] [address] [address], [address] [place] [address] 04/22/2015 07:35:21 04/22/2015 11:26:49 Knee pain [id number] M25.562 [id number] Hamilton Malhotra MD [facility] [address] [place] [address] 04/27/2015 07:34:35 04/27/2015 08:56:43 Knee pain [id number] M25.562 [id number] [facility] [address] [place] [address] 04/29/2015 07:26:21 04/29/2015 10:23:52 Knee pain [id number] M25.562 [id number] ALEXIS Das [facility] [address] [place] [address] 06/08/2015 14:53:23 06/08/2015 15:21:43 Fever [id number] R50.9 [id number] ALEXIS Reno [facility] [address] [place] [address] 05/17/2016 14:39:02 05/17/2016 15:32:48 Cough [id number] R05 [id number] ALEXIS Muse [facility] [address] [place] [address] 12/13/2016 14:22:49 12/13/2016 15:29:50 Streptococcal sore throat 40621254 J02.0 Health Concerns Section Related Observation LastModified by Organization Detai ls LastModified Time None Recorded Concern Status LastModified by Organization Details LastModified Time None Recorded Advance Directives Directive None Recorded Payers Encounter Date Sequence Insurance Name Policy Number Policy Miller Covered Member ID Miller Member ID Guarantor Name 04/27/2015 1 [employer] (POS) Jannet Beaver [place] [id number] Jannet Naheed 04/29/2015 1 [employer] (POS) Jannet L [place] [id number] Jannet Naheed 06/08/2015 1 [employer] (POS) Jannet Saranya Naheed [id number] Jannet [place] 05/17/2016 1 [employer] (POS) Jannet L [place] [id number] Jannet Naheed 12/13/2016 1 [facility] [id number] Jannet Beaver Naheed [id number] Jannet Naheed Notes Date Note Type Note Provider Name and Address Organization Details Recorded Time 04/27/2015 text/html HPI Patient reports that her knee has been feeling better with the anti- inflammatory she started taking again. However, when she stopped taking the anti-inflammatory she could begin feeling the same dull pain again. She does report that her pain overall has improved significantly since starting therapy. Hamilton Malhotra MD [address], [place], [address], [facility] [place] 04/27/2015 20:23:39 04/29/2015 text/html HPI Patient reports that she did not feel as sore as she thought she would after her last tx, but still notices some soreness. She states that her pain has improved, but can still feel the same discomfort. MD [address], [place], [id number], [facility] 04/30/2015 08:52:09 06/08/2015 text/html Patient presents today with complaints of fever and body aches, which started yesterday afternoon. She reports some left ear pain, but otherwise no cough, nasal congestion, or sore throat. She felt a little nauseous last night, but no vomiting, abdominal pain, diarrhea, urinary symptoms or rash. There are no specific exacerbating factors. She has been taking tylenol which does offer some relief from the body aches. She denies any sick contacts. Hamilton Malhotra MD [address], [place], [phone], [facility] 06/09/2015 20:54:45 05/17/2016 text/html Patient presents today with complaints of cough. She reports that her symptoms started 1 week ago. She admits to dry, unproductive cough, wheezing and fatigue. She initially had fevers, chills, sweat which have improved. She also has had some nasal congestion, sore throat and ear pressure. She was seen seen at [facility] where she was given Medrol dosepack and Promethazine-codein e with no relief. Her symptoms have persisted and she rates them as moderate in severity. No alleviating factors. Hamilton Malhotra MD [address], [place], [phone], [facility] 05/17/2016 20:36:27 12/13/2016 text/html Patient arrives to the clinic today with a 1 day sudden onset of right sore throat pain and fever of 102 degrees Fahrenheit this morning. Her right-sided sore throat pain is a 6-7/10 in intensity and states it hurts when she swallows. States her body aches are the worst symptom. She took aspirin and Ibuprofen with little relief. She currently has a fever of 103.3. Admits to chills. Denies headache, cough, shortness of breath, nausea, vomiting, ear pain and chest pain. States her son was treated for strep throat a few weeks ago. Hamilton Malhotra MD [address], [place], [address], [facility] 12/13/2016 20:51:29 OBGyn Episode No OBEpisode recorded.
[2024-07-23 07:48] LABS: Basophils Absolute Auto 0.1 K/mm3 (0.0-0.1); Basophils Percent Auto 0.6 % (0.2-1.2); Eosinophils Absolute Auto 0.2 K/mm3 (0-0.3); Eosinophils Percent Auto 2.2 % (0-4.4); Hematocrit 37.8 % (37.0-47.0); Hemoglobin 12.6 g/dL (12.0-15.0); Immature Granulocyte Percent A 1.2 % (0-0.5); Lymphocytes Absolute Auto 2.07 K/mm3 (0.9-3.2); Lymphocytes Percent Auto 25.2 % (18.3-44.2); Mean Corpuscular HGB Conc 33.3 g/dl (32-36); Mean Corpuscular Hemoglobin 30.8 pg (26-34); Mean Corpuscular Volume 92.4 fl (80-100); Mean Platelet Volume 9.2 fl (7.4-10.4); Monocytes Absolute Auto 0.6 K/mm3 (0.1-0.6); Monocytes Percent Auto 7.3 % (2.6-8.5); Neutrophils Absolute Auto 5.2 K/mm3 (1.3-6.7); Neutrophils Percent Auto 63.5 % (45.5-73.1); Platelet Count Result 267 k/mm3 (150-375); Red Blood Count 4.09 M/mm3 (4.2-5.4); White Blood Count 8.2 K/mm3 (4.5-10.0)
[2024-07-23 08:34] LABS: Alanine Aminotransferase 30 U/L (6-35); Albumin Level 4.3 g/dL (3.5-5.1); Alkaline Phosphatase 60 U/L (38-126); Anion Gap 8 mmol/L (4-12); Aspartate Amino Transferase 38 U/L (14-36); Bilirubin,Total 0.7 mg/dL (0.2-1.3); Blood Urea Nitrogen 13 mg/dL (7-17); Calcium 9.2 mg/dL (8.4-10.2); Carbon Dioxide 26 mmol/L (22-30); Chloride 105 mmol/L (98-107); Cholesterol 169 mg/dL (0-200); Estimated Glomerular Filt Rate > 60; Glucose 94 mg/dL (65-110); HDL Direct 64 mg/dL; LDL Cholesterol Direct 71 mg/dL; Sodium 139 mmol/L (137-145); Total Protein 7.1 g/dL (6.3-8.2); Triglycerides 60 mg/dL (<150)
[2024-07-23 08:57] LABS: Thyroid Stimulating Hormone 0.552 uIU/mL (0.465-4.680)
[2024-07-23 09:55] LABS: Vitamin D 25 Hydroxy 26.5 ng/mL
== END 2024-07-23 07:14 | disposition home or self-care (01) ==
LOC: ANHLAB 07:13
PROVIDERS: PCP Family Medicine; Visit Provider Nurse Practitioner Family
DX: Z13.1 Encounter for screening for diabetes mellitus (principal); R53.83 Other fatigue; F41.9 Anxiety disorder, unspecified; M25.50 Pain in unspecified joint; Z13.220 Encounter for screening for lipoid disorders; E55.9 Vitamin D deficiency, unspecified; R79.89 Other specified abnormal findings of blood chemistry
CPT/HCPCS: 36415; 80053; 80061; 82306; 83735; 84443; 85025

== ENCOUNTER 2024-10-29 18:06 | Emergency (ER) | payer OTHER, SELFPAY ==
--- NOTE | ~2024-10-29 | CT_ITS ---
EXAMINATION: CT brain wo con DATE: 10/29/2024 19:24 INDICATION: Head injury TECHNIQUE: Computed tomography (CT) of the head was performed without intravenous contrast. Sagittal and coronal reconstructions were performed. The mA was adjusted according to patient size. Iterative reconstruction technique was employed. The dose-length product was 605.33 mGy-cm. COMPARISON: head CT dated 10/10/2022 FINDINGS: No fracture. No acute intracranial hemorrhage, acute infarction or abnormal extra axial fluid collection. Ventricles are normal and symmetric. No mass/mass effect. The orbits, paranasal sinuses and mastoid air cells are normal. IMPRESSION: 1. Normal head CT. No fracture or acute intracranial process. Reviewed, dictated and finalized at location A.
--- NOTE | ~2024-10-29 | CT_ITS ---
EXAMINATION: CT cervical spine wo con DATE: 10/29/2024 19:25 INDICATION: Head injury TECHNIQUE: Computed tomography (CT) of the cervical spine was performed without intravenous contrast. Automated exposure control and iterative reconstruction technique were employed. The dose-length product was 236.27 mGy-cm. COMPARISON: 10/10/2022 FINDINGS: Interval progression of reversal of the normal cervical lordosis. 8 degree cervicothoracic dextrocurvature. Vertebral body heights are normal. No acute fracture. Mild interval progression of moderate disc height loss at C5-C6. Mild disc height loss at C6-C7. Likely benign 10 mm hypodense right thyroid nodule. Cervical soft tissues are otherwise unremarkable. Minimal biapical pleural- parenchymal scarring. The following disc levels are specifically discussed: C2-C3: There is minimal bilateral uncovertebral joint osteoarthritis. There is mild left and mild to moderate right facet joint osteoarthritis. There is no neural foraminal stenosis. There is no central canal stenosis. C3-C4: There is mild bilateral uncovertebral joint osteoarthritis. There is minimal right mild to moderate left facet joint osteoarthritis. There is no neural foraminal stenosis. There is no central canal stenosis. C4-C5: There is minimal bilateral uncovertebral joint osteoarthritis. There is mild left and minimal right facet joint osteoarthritis. There is no neural foraminal stenosis. There is no central canal stenosis. C5-C6: Posterior disc osteophyte complex. There is mild right and severe left uncovertebral joint osteoarthritis. There is mild bilateral facet joint osteoarthritis. There is mild right and moderate left neural foraminal stenosis. There is mild central canal stenosis. C6-C7: Disc is mildly bulging. There is mild to moderate bilateral uncovertebral joint osteoarthritis. There is mild left and minimal right facet joint osteoarthritis. There is mild bilateral neural foraminal stenosis. There is mild central canal stenosis. C7-T1: There is minimal bilateral uncovertebral joint osteoarthritis. There is moderate bilateral facet joint osteoarthritis. There is no neural foraminal stenosis. There is no central canal stenosis. IMPRESSION: 1. No acute osseous adenopathy. 2. Moderate spondylosis at C5-C6. Otherwise minimal to mild cervical spondylosis. Reviewed, dictated and finalized at location A. IMPRESSION: 1. No acute osseous adenopathy. 2. Moderate spondylosis at C5-C6. Otherwise minimal to mild cervical spondylosi s.
[2024-10-29 18:08] VITALS: BP 162/99; PULSE 75; RESP 18; TEMP 37.1; O2SAT 99
--- NOTE | 2024-10-29 19:06 | ED.HEATRA ---
HPI - Head Injury General Chief complaint: Head Injury Stated complaint: ?concussion Time Seen by Provider: 10/29/24 18:24 Source: patient Mode of arrival: ambulatory Limitations: no limitations History of Present Illness HPI Narrative: Patient is a 48-year-old female who presents the ED with report of a head injury. Patient reports she was at work today and patient away from her desk in her rolling chair when the chair tipped backwards and patient fell, hitting her head against a metal electrical box on the wall. She sustained injury to her right posterior scalp. Denied LOC. Denies neck or back pain. Reports very slight lightheadedness and fatigue. She is not on any anticoagulation. Related Data Home Medications ?Medication ?Instructions ?Recorded ?Confirmed ?Last Taken ?Type levonorgestrel (Mirena) 1 device intrauterine ONCE 10/29/24 10/29/24 Unknown History Allergies Allergy/AdvReac Type Severity Reaction Status Date / Time influenza virus vacc Allergy Intermediate Unknown Verified 10/29/24 09:35 trivalent, spl Review of Systems Review of Systems: All systems reviewed & are unremarkable except as noted in HPI. All systems reviewed & are unremarkable except as noted in HPI and below PMFSH Past Medical History Medical History Joint pain Fatigue Stress incontinence Leukocytosis Hormone imbalance Panic attack BMI 25.0-25.9,adult Pre-syncope Family History Family History Father No problems noted. Mother No problems noted. Sibling No problems noted. Other Family history of premature coronary heart disease Social History Social History Smoking status: Never smoker Second hand tobacco smoke exposure: No Alcohol intake: current Alcohol use details: occassional Substance use: never Substance use type: does not use Lack of Transportation: No Lack of Food: Never True Current Housing: I Have Housing Concerned About Future Housing: No Difficulty Paying Gas/Electric Bills: No Difficulty Paying for Meds: No Currently Unemployed: No Education: High School Diploma/GED Difficulty w/ Childcare or Family Care: No Living arrangements: with family Gender identity (if verbalized by the patient): Female Spiritual care concerns: No Exam Narrative: GENERAL: Well appearing, well-nourished, non-toxic, in no acute distress. HEAD: Normocephalic. Small contusion to right posterior scalp with small abrasion. No wounds or lacerations. Neck: No significant focal midline spinal tenderness. Full range of motion. RESPIRATORY: Airway patent, respirations nonlabored. CARDIOVASCULAR: Regular rate and rhythm MUSCULOSKELETAL: Moves all extremities. No gross deformities. SKIN: Warm, dry, normal color. NEURO: A&O X3. Speech clear. Cranial nerves II-XII grossly intact. Steady gait. No ataxic movements. No focal deficits. PSYCHIATRIC: Appropriate mood and affect. Normal interaction. Course Vital Signs Vital signs: Vital Signs Temperature 98.7 F 10/29/24 18:08 Pulse Rate 75 10/29/24 18:08 Respiratory Rate 18 10/29/24 18:08 Blood Pressure 162/99 H 10/29/24 18:08 Pulse Oximetry 99 10/29/24 18:08 Oxygen Delivery Room Air 10/29/24 18:08 Temperature 98.7 F 10/29/24 18:08 Pulse Rate 88 10/29/24 20:19 Respiratory Rate 20 10/29/24 20:19 Blood Pressure 162/99 H 10/29/24 18:08 Pulse Oximetry 100 10/29/24 20:19 Oxygen Delivery Room Air 10/29/24 18:08 MDM - Head Injury MDM Narrative Medical decision making narrative: CT brain and cervical spine w/o acute traumatic findings. Patient neurologically intact. In no acute distress. Vital signs are stable. Denies any other injuries. Patient updated on imaging findings, possibility of concussion. Discussed continue management of such. Discussed return precautions. Discharged in stable condition. Medical Records Attestation: I reviewed the patient's medical records. Imaging Data Attestation: I personally reviewed and interpreted this imaging study as follows: Radiologist's impression: ITS Impressions Head CT 10/29/24 19:30 IMPRESSION: 1. Normal head CT. No fracture or acute intracranial process. Cervical Spine CT 10/29/24 19:51 IMPRESSION: 1. No acute osseous adenopathy. 2. Moderate spondylosis at C5-C6. Otherwise minimal to mild cervical spondylosis. Discharge Plan Discharge Clinical Impression: Closed head injury Qualifiers: Encounter type: initial encounter Qualified Code(s): S09.90XA - Unspecified injury of head, initial encounter Patient Disposition: Home Condition: Stable Instructions: Antibiotic Form, Concussion (ED), Head Injury (ED) Additional Instructions: Your imaging did not show any abnormal findings. It is possible you may have sustained a concussion. Recommend plenty of rest, low light/ low stimulus environment, limiting screen time. Recommend Tylenol and ibuprofen as needed for pain.Follow-up with your primary care doctor for further evaluation if needed. Return to the ED if you experience worsening or severe pain, severe dizziness, vision changes, unable to keep down food or drink, or any other symptoms of concern. Patient Language: Venezuelan Prescriptions: No Action alprazolam 0.25 mg tablet 0.25 mg PO TID PRN (Reason: anxiety) Qty: 20 0RF Mirena 21 mcg/24hr (up to 8 yrs) 52 mg intrauterine device 1 device intrauterine ONCE Rx Instructions: as a single dose escitalopram oxalate [Lexapro] 10 mg tablet 10 mg PO DAILY Qty: 90 1RF cholecalciferol (vitamin D3) 125 mcg (5,000 unit) capsule 125 mcg PO DAILY Qty: 90 0RF Follow-up/Referrals: Griffin Chaudhari MD [Primary Care Provider, Family Practice] Time of Disposition: 20:17
--- NOTE | 2024-10-29 19:16 | PC.NURSE ---
Report received from Pierre SMITH.
[2024-10-29 20:19] VITALS: PULSE 88; RESP 20; O2SAT 100
== END 2024-10-29 20:22 | disposition home or self-care (01) ==
PROVIDERS: Emergency Provider Physician Assistant; PCP Family Medicine
DX: S09.90XA Unspecified injury of head, initial encounter (principal); W07.XXXA Fall from chair, initial encounter; Y99.0 Civilian activity done for income or pay
CPT/HCPCS: 70450; 72125; 99284